=== PATIENT | male | born 1945 | race Caucasian/White ===

== ENCOUNTER 2016-07-31 23:30 | Emergency (ER) | payer OTHER ==
[~2016-07-31] VITALS: Ht 182.9 cm; Wt 102.0 kg
[2016-07-31 23:35] VITALS: BP 161/93; PULSE 78; RESP 16; TEMP 98.1; O2SAT 95
[2016-07-31 23:57] VITALS: BP 188/88; PULSE 77; RESP 18; TEMP 98.1; O2SAT 97
[2016-07-31] MEDS ORDERED: PERC10TA27 PO (23:57)
[2016-07-31] MEDS ORDERED: SYMB80AE INH (23:57)
[2016-07-31] MEDS ORDERED: PILO1SOL5 EACH EYE (23:57)
[2016-07-31] MEDS ORDERED: DILT120T PO (23:57)
[2016-07-31] MEDS ORDERED: IPRAAER INH (23:57)
[2016-07-31] MEDS ORDERED: LISI20TA PO (23:57)
[2016-08-01] MEDS ORDERED: TEMA30CA PO (00:01)
[2016-08-01 00:40] VITALS: BP 160/88; PULSE 69; PULSE 99; RESP 18; O2SAT 96
[2016-08-01 00:41] VITALS: BP 170/89; PULSE 69; RESP 18; O2SAT 96
[2016-08-01] MEDS ORDERED: cloNIDine HCL 0.1 MG TAB PO ONE ×2 (00:45→02:15)
--- NOTE | 2016-08-01 01:05 | PD ---
HPI Chief Complaint: Hypertension Time Seen by Provider: 00:32 Travel History International Travel<30 days: No Contact w/Intl Traveler<30days: No Traveled to known affect area: No History of Present Illness HPI 70-year-old male presents to the emergency department for hypertension; recently some by his primary care provider who encouraged him to increase the dose of his lisinopril. Patient takes verapamil twice daily and more recently was on lisinopril/HCTZ once daily patient has been given prescription for additional lisinopril but has not filled that prescription yet. Patient was just routinely checking his blood pressure and noticed it was elevated and then upon recheck again it was elevated so decided to come to the emergency room for evaluation. Patient had no preceding symptoms and has no symptoms at this time of headache visual disturbance neck pain chest pain palpitations shortness of breath sweats nausea vomiting referred neck jaw back shoulder arm pain abdominal pain focal upper or lower extremity numbness tingling or weakness and no ataxia of gait. PFSH Past Medical History Narrative Medical Back pain dyslipidemia Hypertension COPD CAD tonsillar cancer no tobacco use nursing notes reviewed Cancer: Yes (tonsil ca) Cardiovascular Problems: Yes COPD: Yes Coronary Artery Disease: Yes Diminished Hearing: No Hypertension: Yes Musculoskeletal: Yes (back pain) Respiratory: Yes Tetanus Vaccination: Unknown Influenza Vaccination: No Social History Alcohol Use: No Tobacco Use: No Substance Use: No Allergies-Medications (Allergen,Severity, Reaction): Coded Allergies: No Known Allergies (Unverified , 07/31/16) Reported Meds & Prescriptions Reported Meds & Active Scripts Active Clonidine (Clonidine HCl) 0.1 Mg Tab 0.1 Mg PO Q12HR PRN Reported Temazepam 30 Mg Cap 30 Mg PO HS PRN Percocet (Oxycodone-Acetaminophen) 10-325 mg Tab 1 Tab PO Q6H PRN Pilocarpine Opth Drops (Pilocarpine HCl) 1 % Soln 1 Drop EACH EYE Q6HR Combivent Respimat Inh (Ipratropium-Albuterol Inh) 20-100 Fci/Act Aero 1 Puff INH QID Symbicort Inh (Budesonide/Formoterol Fumarate) 80-4.5 Mcg/Act Aero 2 Puff INH Q12HR Diltiazem (Diltiazem HCl) 120 Mg Tab 120 Mg PO BID Lisinopril-Hctz 20-12.5 Mg Tab 1 Tab PO DAILY Review of Systems Except as stated in HPI: all other systems reviewed are Neg General / Constitutional: No: Fever Eyes: No: Diploplia HENT: No: Headaches Cardiovascular: No: Chest Pain or Discomfort, Palpitations, Diaphoresis Respiratory: No: Shortness of Breath Gastrointestinal: No: Nausea, Vomiting Genitourinary: No: Decreased Urinary Output Musculoskeletal: No: Myalgias, Arthralgias Skin: No Rash Neurologic: No: Weakness, Dizziness, Syncope, Focal Abnormalities, Coordination Problem, Ataxia, Headache, Change in Mentation, Slurred Speech, Paresthesia, Incontinence, Seizures, Sensory Disturbance Psychiatric: No: Anxiety Hematologic/Lymphatic: No: Lymph Node Enlargement Physical Exam Narrative GENERAL: Well-developed well-nourished male in no acute distress no respiratory distress SKIN: Warm and dry. HEAD: Atraumatic. Normocephalic. EYES: Pupils equal and round. No scleral icterus. No injection or drainage. ENT: No nasal bleeding or discharge. Mucous membranes pink and moist. NECK: Trachea midline. No JVD. CARDIOVASCULAR: Regular rate and rhythm. RESPIRATORY: No accessory muscle use. Clear to auscultation. Breath sounds equal bilaterally. GASTROINTESTINAL: Abdomen soft, non-tender, nondistended. Hepatic and splenic margins not palpable. MUSCULOSKELETAL: Extremities without clubbing, cyanosis, or edema. No obvious deformities. NEUROLOGICAL: Awake and alert. No obvious cranial nerve deficits. Motor grossly within normal limits. Five out of 5 muscle strength in the arms and legs. Normal speech. PSYCHIATRIC: Appropriate mood and affect; insight and judgment normal. Data Data Last Documented VS Vital Signs Date Time Temp Pulse Resp B/P Pulse Ox O2 Delivery O2 Flow Rate FiO2 08/01/16 03:07 67 18 08/01/16 03:06 159/87 97 Room Air 07/31/16 23:57 98.1 Orders Clonidine (Catapres) (08/01/16 00:45) Clonidine (Catapres) (08/01/16 02:15) Oxycodone-Acetamin 10-325 Mg (Percocet 1 (08/01/16 02:30) Albuterol-Ipratropium Neb (Duoneb Neb) (08/01/16 02:30) MDM Medical Decision Making Medical Screen Exam Complete: Yes Emergency Medical Condition: Yes Medical Record Reviewed: Yes Differential Diagnosis Hypertension, accelerated hypertension, inadequate antihypertensive therapy Narrative Course Blood pressure rechecked remains elevated patient administered clonidine 0.1 mg by mouth Blood pressure showing some improvement after one dose of clonidine although remains elevated therefore additional clonidine 0.1 mg administered While waiting for blood pressure to further decrease reports that he did not take his evening dose of Symbicort and also did not take his evening dose of Percocet reports that he feels like he is starting to get some exacerbation of his COPD and his chronic foot pain is increasing therefore was administered 1 DuoNeb updraft regarding his history of COPD and was given his evening dose of Percocet. At 3 AM patient is clinically improved and stable for outpatient management. Patient provided a prescription for as needed clonidine and encouraged to follow -up with his primary care provider. Patient is to take his new dose of lisinopril as instructed by his primary. Diagnosis Primary Impression: HTN (hypertension) Referrals: Primary Care Physician call for appointment Patient Instructions: General Instructions Additional Instructions: Continue chronic meds as chronically prescribed Follow-up with your primary care provider Use clonidine as prescribed as needed for breakthrough elevated blood pressure Return to the emergency department for any concerns or change in condition Med/Other Pt SpecificInfo: Prescription(s) given Scripts Clonidine 0.1 Mg Tab0.1 Mg PO Q12HR PRN (SBP>160, DBP>90) #7 TAB Ref 0 Prov:Melony Rutledge MD 08/01/16 Disposition: 01 DISCHARGE HOME Condition: Stable Melony Ruteldge MD Aug 01, 2016 01:05
[2016-08-01 01:56] VITALS: BP 162/86; PULSE 72; RESP 18; O2SAT 96
[2016-08-01] MEDS ORDERED: RESP: ALBUTEROL 2.5 MG/IPRATROPIUM 0.5 MG NEB (SCH) NEB ONE (02:30)
[2016-08-01] MEDS ORDERED: oxyCODONE/ACETAMINOPHEN 10 MG/325 MG TAB PO ONE (02:30)
[2016-08-01] MEDS ORDERED: CLON0.1T PO (02:35)
[2016-08-01 03:06] VITALS: BP 159/87; PULSE 64; RESP 18; O2SAT 97
== END 2016-08-01 03:14 | disposition home or self-care (01) ==
LOC: PHED 23:30
DX: I10 Essential (primary) hypertension (principal); I25.10 Atherosclerotic heart disease of native coronary artery without angina pectoris; J44.9 Chronic obstructive pulmonary disease, unspecified; E78.5 Hyperlipidemia, unspecified; Z85.818 Personal history of malignant neoplasm of other sites of lip, oral cavity, and pharynx
CPT/HCPCS: 94664; 99283